=== PATIENT | male | born 1940 | race Caucasian/White ===

== ENCOUNTER 2024-04-01 09:43 | Observation (INO) ==
[2024-04-01 10:12] LABS: ABS Basophils 0.1 10^3/uL (0.0-0.1); ABS Eosinophils 0.1 10^3/uL (0.0-0.5); ABS Lymphocytes 2.1 10^3/uL (1.0-4.8); ABS Monocytes 0.4 10^3/uL (0.0-1.1); ABS Neutrophils 4.2 10^3/uL (1.5-7.6); Eosinophil % 1.6 %; Hematocrit 43.2 % (38-53); Lymphocyte % 29.8 %; Mean Corpuscular Hemoglobin 31.4 pg (27-33); Mean Corpuscular Hgb Conc 34.9 g/dL (31-36); Mean Corpuscular Volume 90.2 fL (80-97); Mean Platelet Volume 9.4 fL (7.5-11.2); Platelet Count 171 10^3/uL (150-450); Red Blood Count 4.79 10^6/uL (4.06-5.63); Red Cell Distribution Width 13.3 % (12-17); White Blood Count 6.9 10^3/uL (3.6-10.2)
[2024-04-01 10:57] LABS: INR 1.16 (0.83-1.13)
[2024-04-01 11:11] LABS: Albumin 3.9 g/dL (3.2-5.2); Albumin/Globulin Ratio 1.5 (1-3); Creatinine, Serum 1.05 mg/dL (0.67-1.17); Globulin 2.6 g/dL (2-4); Total Bilirubin 1.1 mg/dL (0.2-1.0); Total Protein 6.5 g/dL (6.4-8.9); eGFR CKD-EPI 70.9 (>60)
[2024-04-01 11:31] LABS: Potassium 4.2 mmol/L (3.5-5.0)
[2024-04-01 12:45] LABS: High Sensitivity Troponin 1 Hr 199 pg/mL (<20)
[2024-04-01] MEDS: Heparin DRIP 25,000 UNITS BAG 25,000 UNITS/250 ML BAG IV SCH (13:10)
[2024-04-01] MEDS: Heparin 5000 UNITS/ML 1 mL VIAL IV SCH (13:11)
[2024-04-01 13:35] LABS: ABS Basophils 0.1 10^3/uL (0.0-0.1); ABS Eosinophils 0.1 10^3/uL (0.0-0.5); ABS Lymphocytes 2.2 10^3/uL (1.0-4.8); ABS Monocytes 0.4 10^3/uL (0.0-1.1); ABS Neutrophils 4.8 10^3/uL (1.5-7.6); ABS Nucleated RBC 0.01 10^3/ul; Eosinophil % 0.9 %; Hematocrit 42.9 % (38-53); Hemoglobin 14.7 g/dL (13.2-16.3); Lymphocyte % 28.9 %; Mean Corpuscular Hemoglobin 31.1 pg (27-33); Mean Corpuscular Hgb Conc 34.3 g/dL (31-36); Mean Corpuscular Volume 90.7 fL (80-97); Mean Platelet Volume 9.5 fL (7.5-11.2); Nucleated Red Blood Cells % 0.1 %/100WBC (0.0-0.8); Platelet Count 190 10^3/uL (150-450); Red Blood Count 4.72 10^6/uL (4.06-5.63); Red Cell Distribution Width 13.5 % (12-17); White Blood Count 7.6 10^3/uL (3.6-10.2)
[2024-04-01 14:14] LABS: Creatinine, Serum 0.96 mg/dL (0.67-1.17); eGFR CKD-EPI 78.9 (>60)
[2024-04-01] MEDS: Sulfur Hexaflouride MICROSPHR 25 MG VIAL IV ONE (15:15)
[2024-04-01] MEDS ORDERED: Sulfur Hexaflouride MICROSPHR 25 MG VIAL ONE (15:34)
[2024-04-01 16:46] LABS: HDL Cholesterol 41.5 mg/dL
[2024-04-01 18:44] LABS: High Sensitivity Troponin 3 Hr 840 pg/mL (<20)
[2024-04-02 00:06] LABS: High Sensitivity Troponin 3 Hr 1433 pg/mL (<20)
[2024-04-02 06:14] LABS: ABS Basophils 0.1 10^3/uL (0.0-0.1); ABS Eosinophils 0.1 10^3/uL (0.0-0.5); ABS Lymphocytes 2.4 10^3/uL (1.0-4.8); ABS Monocytes 0.6 10^3/uL (0.0-1.1); ABS Neutrophils 3.7 10^3/uL (1.5-7.6); ABS Nucleated RBC 0.01 10^3/ul; Eosinophil % 1.8 %; Hematocrit 40.6 % (38-53); Hemoglobin 14.3 g/dL (13.2-16.3); Lymphocyte % 34.3 %; Mean Corpuscular Hemoglobin 31.7 pg (27-33); Mean Corpuscular Hgb Conc 35.3 g/dL (31-36); Mean Corpuscular Volume 89.9 fL (80-97); Mean Platelet Volume 9.1 fL (7.5-11.2); Nucleated Red Blood Cells % 0.2 %/100WBC (0.0-0.8); Platelet Count 156 10^3/uL (150-450); Red Blood Count 4.51 10^6/uL (4.06-5.63); Red Cell Distribution Width 13.3 % (12-17); White Blood Count 6.9 10^3/uL (3.6-10.2)
[2024-04-02 07:07] LABS: Albumin 3.5 g/dL (3.2-5.2); Albumin/Globulin Ratio 1.5 (1-3); Calcium 8.8 mg/dL (8.6-10.3); Creatinine, Serum 0.96 mg/dL (0.67-1.17); Globulin 2.4 g/dL (2-4); Magnesium 1.9 mg/dL (1.9-2.7); Potassium 4.1 mmol/L (3.5-5.0); Total Bilirubin 1.1 mg/dL (0.2-1.0); Total Protein 5.9 g/dL (6.4-8.9); eGFR CKD-EPI 78.9 (>60)
[2024-04-02] MEDS ORDERED: Midazolam 5 mg/5 ml VIAL 1 mg/ml 5 ml VIAL (5 mg) ONE (08:01)
[2024-04-02] MEDS ORDERED: Heparin 1,000 UNIT/ML 10 ml (10,000 UNITS) CATHLAB/DIALYSIS ONE (08:01)
[2024-04-02] MEDS ORDERED: fentaNYL 100 mcg/2 ml 50 MCG/ML VIAL ONE ×3 (08:01→10:08)
[2024-04-02] MEDS ORDERED: Lidocaine 1% MPF 5 ML VIAL ONE (08:02)
[2024-04-02] MEDS ORDERED: Heparin 2 UNITS/ML 1000 mls 2,000 ML IV ONE (08:02)
[2024-04-02] MEDS ORDERED: nitroGLYCERIN DRIP 25,000 MCG/250 ML BTL ONE (08:02)
[2024-04-02] MEDS ORDERED: niCARdipine 0.1MG/ML IVPREMIX 20 MG/200 ML BAG IV ONE (08:03)
[2024-04-02 08:07] LABS: High Sensitivity Troponin 3 Hr 1224 pg/mL (<20)
[2024-04-02] MEDS ORDERED: Flumazenil 0.5 mg/5 ml 0.1 MG/ML 5 ml VIAL IV PRN (08:24)
[2024-04-02] MEDS: Aspirin EC 81 mg TAB.EC (enteric coated) PO SCH (08:24)
[2024-04-02] MEDS ORDERED: Naloxone 0.4 mg VIAL 0.4 mg/ml 1 ml VIAL IV PUSH PRN (08:24)
[2024-04-02] MEDS ORDERED: Iohexol 350 (CONTRAST) 200 ML MDV IV ONE (08:45)
[2024-04-02] MEDS ORDERED: Norepinephrine 4 MG/250mL D5W 0 MCG/0 ML BAG IV ONE (09:34)
[2024-04-02] MEDS: fentaNYL 100 mcg/2 ml 50 MCG/ML VIAL IV SLOW PU ONE (10:38)
[2024-04-02] MEDS: Midazolam 10 mg/10 ml VIAL 1 mg/ml 10 ml VIAL (10 mg) IV SLOW PU ONE (10:38)
[2024-04-02] MEDS ORDERED: Dextrose 50% Syringe 50 ml 25 GM/50 ML SYRINGE IV PUSH PRN (10:43)
[2024-04-03] MEDS ORDERED: Morphine 2 MG/ML SYRINGE IV PRN (01:30)
[2024-04-03 05:33] LABS: ABS Basophils 0.1 10^3/uL (0.0-0.1); ABS Eosinophils 0.1 10^3/uL (0.0-0.5); ABS Lymphocytes 2.5 10^3/uL (1.0-4.8); ABS Monocytes 0.6 10^3/uL (0.0-1.1); ABS Neutrophils 3.8 10^3/uL (1.5-7.6); Eosinophil % 1.5 %; Hematocrit 42.4 % (38-53); Hemoglobin 14.3 g/dL (13.2-16.3); Lymphocyte % 35.5 %; Mean Corpuscular Hemoglobin 30.6 pg (27-33); Mean Corpuscular Hgb Conc 33.8 g/dL (31-36); Mean Corpuscular Volume 90.4 fL (80-97); Nucleated Red Blood Cells % 0.1 %/100WBC (0.0-0.8); Platelet Count 156 10^3/uL (150-450); Red Blood Count 4.69 10^6/uL (4.06-5.63); Red Cell Distribution Width 13.1 % (12-17); White Blood Count 7.2 10^3/uL (3.6-10.2)
[2024-04-03 06:56] LABS: Calcium 8.8 mg/dL (8.6-10.3); Creatinine, Serum 0.89 mg/dL (0.67-1.17); Magnesium 1.9 mg/dL (1.9-2.7); Phosphorus 4.1 mg/dL (2.5-5.0); Potassium 4.1 mmol/L (3.5-5.0); eGFR CKD-EPI 85.6 (>60)
[2024-04-03 09:56] VITALS: BP 139/75
== END 2024-04-03 09:46 | disposition short-term general hospital (02) ==
LOC: EDACCT# → ED 09:43 → EDHOLD 09:43 → ICU 15:07 → MEDTELE 16:19 → ICU 04-02 10:15
PROVIDERS: ADMIT Internal Medicine; ATTEND Internal Medicine

== ENCOUNTER 2024-04-18 05:47 | Observation (INO) ==
[2024-04-18 06:15] LABS: ABS Basophils 0.1 10^3/uL (0.0-0.1); ABS Eosinophils 0.1 10^3/uL (0.0-0.5); ABS Lymphocytes 2.4 10^3/uL (1.0-4.8); ABS Monocytes 0.6 10^3/uL (0.0-1.1); ABS Neutrophils 3.6 10^3/uL (1.5-7.6); ABS Nucleated RBC 0.01 10^3/ul; Hematocrit 41.1 % (38-53); Hemoglobin 14.2 g/dL (13.2-16.3); Lymphocyte % 35.1 %; Mean Corpuscular Hemoglobin 31.2 pg (27-33); Mean Corpuscular Hgb Conc 34.5 g/dL (31-36); Mean Corpuscular Volume 90.5 fL (80-97); Mean Platelet Volume 9.3 fL (7.5-11.2); Nucleated Red Blood Cells % 0.2 %/100WBC (0.0-0.8); Platelet Count 219 10^3/uL (150-450); Red Blood Count 4.54 10^6/uL (4.06-5.63); Red Cell Distribution Width 13.2 % (12-17); White Blood Count 6.8 10^3/uL (3.6-10.2)
[2024-04-18 06:31] LABS: INR 1.21 (0.85-1.14)
[2024-04-18 06:47] LABS: Albumin 3.8 g/dL (3.2-5.2); Albumin/Globulin Ratio 1.4 (1-3); Calcium 8.9 mg/dL (8.6-10.3); Creatinine, Serum 1.08 mg/dL (0.67-1.17); Globulin 2.8 g/dL (2-4); Potassium 4.1 mmol/L (3.5-5.0); Total Bilirubin 0.9 mg/dL (0.2-1.0); Total Protein 6.6 g/dL (6.4-8.9); eGFR CKD-EPI 68.5 (>60)
[2024-04-18 07:45] LABS: High Sensitivity Troponin 1 Hr 7 pg/mL (<20)
[2024-04-18 07:46] LABS: Urine Appearance Clear; Urine Bilirubin Negative (Negative); Urine Blood Negative (Negative); Urine Color Yellow; Urine Glucose Negative (Negative); Urine Ketones Negative (Negative); Urine Nitrite Negative (Negative); Urine Protein Trace (Negative); Urine Specific Gravity 1.021 (1.002-1.030); Urine Urobilinogen Negative (Negative); Urine pH 5.5 (5.0-8.0)
[2024-04-18] MEDS ORDERED: Polyethylene Glycol 3350 17 GM PACKET PO PRN (09:20)
[2024-04-18] MEDS ORDERED: Senna TAB 8.6 mg TAB PO PRN (09:20)
[2024-04-18 09:45] LABS: High Sensitivity Troponin 3 Hr 5 pg/mL (<20)
[2024-04-18] MEDS ORDERED: Regadenoson 0.4 MG/5 ML SYRINGE ONE (11:29)
[2024-04-18] MEDS ORDERED: Aminophylline 25 MG/ML VIAL ONE (11:29)
[2024-04-18] MEDS: Aspirin EC 81 mg TAB.EC (enteric coated) PO SCH (14:09)
[2024-04-18 16:03] VITALS: BP 117/51
== END 2024-04-18 18:18 | disposition home or self-care (01) ==
LOC: EDHOLD 05:47 → ED 05:47 → EDHOLD 16:01
PROVIDERS: ADMIT Internal Medicine; ATTEND Internal Medicine